=== PATIENT | male | born 1955 | race Caucasian/White ===

== ENCOUNTER → 2018-06-13 09:52 | Outpatient (CLI) | payer MEDICARE, MEDICAID, SELFPAY ==
--- NOTE | 2018-06-13 10:00 | NVE_ITS ---
Venous Exam Indications: 729.5 Pain in limb. IMPRESSIONS 1. There is no evidence of significant Reflux. 2. No evidence of deep or superficial vein thrombosis involving the right lower extremity Right lower extremity venous duplex evaluation. Doppler flow study including spectral analysis, color and batres scale imaging. Location: Vascular laboratory. Patient status: Outpatient. Tables: Venous flow and imaging: + +-------+ + Location Overall Flow properties + +-------+ + Right common femoral Patent Normal phasicity; spontaneous; normal augmentation; compressible + +-------+ + Right saphenofemoral junction Patent Compressible + +-------+ + Right profunda femoral Patent Compressible + +-------+ + Right femoral Patent Normal phasicity; spontaneous; normal augmentation; compressible + +-------+ + Right greater saphenous Patent Normal phasicity; spontaneous; normal augmentation; compressible + +-------+ + Right popliteal Patent Normal phasicity; spontaneous; normal augmentation; compressible + +-------+ + Right posterior tibial Patent Compressible + +-------+ + Right peroneal Patent Compressible + +-------+ + Right gastrocnemius Patent Compressible + +-------+ + Right soleal Patent Compressible + +-------+ + (Report amended ) Electronically signed by: Javed Tavares [id number]
== END ==
PROVIDERS: Family Provider Family Medicine; PCP Nurse Practitioner Family; Visit Provider Nurse Practitioner Family
DX: M79.604 Pain in right leg (principal)
CPT/HCPCS: 93971

== ENCOUNTER 2018-12-18 09:00 | Outpatient (RCR) | payer MEDICARE, MEDICAID, SELFPAY | END 2019-01-20 14:35 | disposition home or self-care (01) | LOC: PT 09:00 | PROVIDERS: Visit Provider Nurse Practitioner Family | DX: M54.2 Cervicalgia (principal) | CPT/HCPCS: 97010; 97012; 97014; 97110; 97163; G0283 ==

== ENCOUNTER 2022-10-27 13:39 | Emergency (ER) | payer MEDICARE, MEDICAID, SELFPAY ==
[2022-10-27] VITALS (19 sets, daily range): BP systolic 70–103; BP diastolic 46–60; PULSE 67–85; RESP 22–36; TEMP 36.8–39.6; O2SAT 97–100; BMI 29.8
--- NOTE | 2022-10-27 13:39 | ECG_ITS ---
APPROVED REPORT Exam: Resting ECG HR:83 bpm ECG Measurements Heart Rate 83 AXES [place] 125 P 9 QRSd 134 QRS 41 QT 452 T 47 QTc 492 Conclusion SINUS RHYTHM Incomplete RBBB ABNORMAL ECG UNCONFIRMED REPORT Electronically signed by : Jourdan Albarado MD 10/27/2022 21:16:35
--- NOTE | 2022-10-27 13:44 | HMH.EDAMS ---
Discharge Plan Disposition Patient Disposition: Xfer Short-Term Hosp Condition: Critical Prescriptions Prescriptions: No Action quetiapine 25 mg Tablet 25 mg feeding tube HS amiodarone 200 mg Tablet 200 mg feeding tube DAILY fluconazole 200 mg Tablet 400 mg feeding tube BID thiamine HCl (vitamin B1) 100 mg Tablet 100 mg feeding tube DAILY allopurinol 100 mg tablet 100 mg feeding tube DAILY omeprazole 40 mg capsule,delayed release(DR/EC) 40 mg feeding tube DAILY glimepiride 4 mg Tablet 4 mg feeding tube DAILY aspirin 81 mg Tablet,Chewable 81 mg feeding tube DAILY Multivitamin And Mineral Tablet 1 tab feeding tube DAILY metoprolol tartrate 25 mg Tablet 25 mg feeding tube BID topiramate 50 mg Tablet 50 mg feeding tube HS rifaximin 550 mg Tablet 550 mg feeding tube BID Brilinta 90 mg tablet 90 mg feeding tube BID Jardiance 25 mg Tablet 25 mg feeding tube DAILY cyanocobalamin (vitamin B-12) 500 mcg Tablet,Chewable 500 mcg PO DAILY Referrals Follow up/Referrals: Tam To [Primary Care Provider] - See instructions Clinical Impressions Clinical Impression: Septic shock Stand Alone Forms Stand Alone Forms: Transfer Record - ED Instructions Patient Instructions: DI for Altered Mental Status Discharge ED Provider: Prakash Lock Altered Mental Status HPI General Chief Complaint: Altered Mental Status Stated Complaint: ams Time Seen by Provider: 10/27/22 13:44 Mode of Arrival: EMS Source of Information: EMS Limitations: Altered Mental Status History of Present Illness HPI narrative: The patient presents via EMS from the shelter for altered mental status. At baseline the patient has dementia but is usually agitated and combative at night. According to EMS, the shelter staff stated that last night he did not act his usual. This morning he was unresponsive. MD complaint: altered mental status Related Data Home Medications Medication Instructions Recorded Confirmed allopurinol 100 mg tablet 100 mg feeding tube DAILY gout 10/27/22 10/27/22 amiodarone 200 mg tablet 200 mg feeding tube DAILY 10/27/22 10/27/22 Hypertension aspirin 81 mg chewable tablet 81 mg feeding tube DAILY 10/27/22 10/27/22 Hypertension cyanocobalamin (vitamin B-12) 500 500 mcg PO DAILY vitamins 10/27/22 10/27/22 mcg chewable tablet empagliflozin 25 mg tablet 25 mg feeding tube DAILY Diabetes 10/27/22 10/27/22 (Jardiance) fluconazole 200 mg tablet 400 mg feeding tube BID yeast 10/27/22 10/27/22 glimepiride 4 mg tablet 4 mg feeding tube DAILY Diabetes 10/27/22 10/27/22 metoprolol tartrate 25 mg tablet 25 mg feeding tube BID Hypertension 10/27/22 10/27/22 multivitamin,bt-lbnb-Ca-FA-min 1 tab feeding tube DAILY Supplement 10/27/22 10/27/22 omeprazole 40 mg capsule,delayed 40 mg feeding tube DAILY GERD 10/27/22 10/27/22 release quetiapine 25 mg tablet 25 mg feeding tube HS dementia 10/27/22 10/27/22 rifaximin 550 mg tablet 550 mg feeding tube BID ibs 10/27/22 10/27/22 thiamine HCl (vitamin B1) 100 mg 100 mg feeding tube DAILY vitamins 10/27/22 10/27/22 tablet ticagrelor 90 mg tablet (Brilinta) 90 mg feeding tube BID hx of [place] 10/27/22 10/27/22 topiramate 50 mg tablet 50 mg feeding tube HS 10/27/22 10/27/22 anticonvulsant Allergies Allergy/AdvReac Type Severity Reaction Status Date / Time Sulfa (Sulfonamide Allergy Unknown Verified 10/27/22 16:37 Antibiotics) [SULFA (SULFONAMIDE ANTIBIOTICS)] Influenza Virus Vaccines Allergy Verified 10/27/22 17:18 phenylephrine Allergy Verified 10/27/22 17:17 [id number] Reductase Allergy Verified 10/27/22 17:17 Inhibitor SINUS MEDS Allergy Unknown Uncoded 09/17/17 14:26 PFSH PFS Disclaimer: The information contained in this section may have been updated after the patient was seen, as this information can be updated by other users
--- NOTE | 2022-10-27 13:48 | XR_ITS ---
PROCEDURE INFORMATION: Exam: XR Chest Exam date and time: 10/27/2022 2:38 PM Age: 67 years old Clinical indication: Shortness of breath; Additional info: AMS TECHNIQUE: Imaging protocol: Radiologic exam of the chest. Views: 1 view. COMPARISON: No relevant prior studies available. FINDINGS: Tubes, catheters and devices: There are several EKG leads overlying the chest. Lungs: There is question of a retrocardiac infiltrate. Pleural spaces: Unremarkable. No pleural effusion. No pneumothorax. Heart/Mediastinum: Unremarkable. No cardiomegaly. Bones/joints: Median sternotomy wires are present. There is moderate osteopenia. Other findings: Evaluation is limited due to patient rotation. IMPRESSION: There is question of a retrocardiac infiltrate. Followup imaging is recommended.
--- NOTE | 2022-10-27 13:48 | CT_ITS ---
PROCEDURE INFORMATION: Exam: CT Head Without Contrast Exam date and time: 10/27/2022 2:20 PM Age: 67 years old Clinical indication: Altered mental status/memory loss. TECHNIQUE: Imaging protocol: Computed tomography of the head without contrast. Radiation optimization: All CT scans at this facility use at least one of these dose optimization techniques: automated exposure control; mA and/or kV adjustment per patient size (includes targeted exams where dose is matched to clinical indication); or iterative reconstruction. Other protocol: This patient has received 0 known CTs and 0 known cardiac nuclear medicine studies in the 12 months prior to the current study. COMPARISON: No relevant prior studies available. FINDINGS: Brain: There is low attenuation abnormality in the periventricular white matter consistent with chronic microvascular ischemic changes. There are chronic brainstem ischemic changes. There is moderate cerebral and cerebellar atrophy. There is moderate intracranial vascular calcification. Cerebral ventricles: No ventriculomegaly. Paranasal sinuses: Visualized sinuses are unremarkable. No fluid levels. Mastoid air cells: Visualized mastoid air cells are well aerated. Bones/joints: Unremarkable. No acute fracture. Soft tissues: Unremarkable. IMPRESSION: 1. There is low attenuation abnormality in the periventricular white matter consistent with chronic microvascular ischemic changes. If an acute infarct is a clinical concern, follow-up MRI with diffusion imaging is recommended. 2. There are chronic brainstem ischemic changes. 3. There is moderate cerebral and cerebellar atrophy.
[2022-10-27 13:58] LABS: VBG Base Excess 0.7 mmol/L (-2.4-2.3); VBG Oxygen Saturation 42.8 % (50-70); VBG PCO2 38.4 mmol/L (35-51); VBG PH 7.43 mmol/L (7.31-7.41); VBG PO2 26.5 mmol/L (28-40); VBG Total CO2 26.2 mmol/L (23-27)
[2022-10-27 14:02] LABS: Lactic Acid 3.1 mmol/L (0.7-2.1)
--- NOTE | 2022-10-27 14:07 | PC.NURSE ---
pt switched to NC at 4L, ER aware pt sat was 100% on 100% NRB
[2022-10-27 14:09] LABS: Basophils # 0.1 K/mm3 (0-0.2); Basophils % 0.9 % (0.1-2.0); Eosinophils # 0.1 K/mm3 (0.0-0.4); Eosinophils % 1.1 % (0.1-12.0); Hematocrit 39.3 % (42.0-52.0); Lymphocytes # 2.2 K/mm3 (0.7-4.5); Mean Corpuscular HGB Conc 30.5 g/dL (31.8-35.4); Mean Corpuscular Hemoglobin 25.9 pg (27.0-31.2); Mean Corpuscular Volume 84.8 fl (80-94); Monocytes # 0.4 K/mm3 (0.1-1.0); Monocytes % 2.7 % (1.7-9.3); Neutrophils # 10.1 K/mm3 (1.8-7.8); Neutrophils % 78.4 % (37.0-80.0); Platelet Count 466 K/mm3 (142-424); Red Blood Count 4.63 M/mm3 (4.60-6.20); Red Cell Distribution Width 18.4 % (11.5-17.5); White Blood Count 12.9 K/mm3 (4.8-10.8)
[2022-10-27 14:10] LABS: Appearance,Urine CLOUDY (Clear); Bilirubin,Urine Negative (Negative); Blood, Urine 3+ (Negative); Color,Urine YELLOW (Yellow); Glucose,Urine (UA) 2+ (Negative); Ketones,Urine Negative (Negative); Leukocyte Esterase,Urine 2+ (Negative); Microscopic, Urine URINE MICROSCOPIC (MICROSCOPIC); Nitrate,Urine Negative (Negative); Protein,Urine TRACE (Negative); Specific Gravity, Urine 1.025 (1.005-1.030); Urobilinogen,Urine 0.2 EU/dl (0.2)
[2022-10-27 14:13] LABS: Activated Partial Thrombo Time 23.9 seconds (22.8-30.6); INR 1.38 (0.9-1.1); Prothrombin Time 14.6 seconds (10.1-12.5)
--- NOTE | 2022-10-27 14:13 | PC.NURSE ---
pt to CT via stretcher
[2022-10-27 14:25] LABS: Bacteria,Urine 3+ /lpf; Calcium Oxalate Crystals,Urine Trace /lpf; WBC,Urine 50-100 #/hpf (0-3)
--- NOTE | 2022-10-27 14:34 | PC.NURSE ---
pt return from CT lab at
--- NOTE | 2022-10-27 14:39 | P.CONPHA_ITS ---
Pharmacy Consult Date: 10/27/22 Time: 14:39 Referring provider: DR. ARRINGTON Reason for Consult:: VANCOMYCIN DOSING Allergies Allergy/AdvReac Type Severity Reaction Status Date / Time Sulfa (Sulfonamide Allergy Unknown Unverified 09/17/17 14:26 Antibiotics) [SULFA (SULFONAMIDE ANTIBIOTICS)] SINUS MEDS Allergy Unknown Uncoded 09/17/17 14:26 New Prescriptions to Start Prescriptions: Height: 1.83 m Weight: 99.79 kg Laboratory Results:: Laboratory Results - last 24 hr 10/27/22 13:48: WBC 12.9 H, RBC 4.63, Hgb 12.0 L, Hct 39.3 L, MCV 84.8, MCH 25.9 L, MCHC 30.5 L, RDW 18.4 H, Plt Count 466 H, MPV 9.0, Neut % (Auto) 78.4, Lymph % (Auto) 17.0, [place] % (Auto) 2.7, Eos % (Auto) 1.1, Baso % (Auto) 0.9, Neut # (Auto) 10.1 H, Lymph # (Auto) 2.2, [place] # (Auto) 0.4, Eos # (Auto) 0.1, Baso # (Auto) 0.1 10/27/22 13:48: PT 14.6 H, INR 1.38 H, APTT 23.9 10/27/22 13:48: Lactate 3.1 H 10/27/22 13:54: VBG pH 7.43 H, VBG pCO2 38.4, VBG pO2 26.5 L, VBG HCO3 25.0, VBG Total CO2 26.2, VBG O2 Saturation 42.8 L, VBG Base Excess 0.7 10/27/22 14:05: Urine Color Yellow, Urine Appearance Cloudy, Urine pH 5.0, Ur Specific [place] 1.025, Urine Protein Trace, Urine Glucose (UA) 2+, Urine Ketones Negative, Urine Blood 3+, Urine Nitrate Negative, Urine Bilirubin Negative, Urine Urobilinogen 0.2, Ur Leukocyte Esterase 2+ A, Urine RBC 3-5, Urine WBC 50-100, Ur Squamous Epith Cells 3-5, Calcium Oxalate Crystal Trace, Urine Bacteria 3+
--- NOTE | 2022-10-27 15:06 | PC.NURSE ---
pt sister at
--- NOTE | 2022-10-27 15:12 | PC.NURSE ---
O2 decreased to 3L per NC at this time will continue to monitor
--- NOTE | 2022-10-27 15:19 | PC.NURSE ---
oral care performed at this time, large amount of black and batres material removed from roof of pt mouth with swab stick. Pt tolerated well.
[2022-10-27 15:28] LABS: Chloride 121 mmol/L (98-107)
[2022-10-27 15:31] LABS: Alanine Aminotransferase 56 U/L (12-78); Albumin Level 3.1 g/dl (3.5-5.0); Albumin/Globulin Ratio 0.8 (1.1-1.8); Alkaline Phosphatase 164 U/L (38-126); Aspartate Amino Transferase 143 U/L (17-59); Bilirubin,Total 0.5 mg/dl (0.2-1.3); Calcium 9.1 mg/dl (8.4-10.2); Carbon Dioxide 21 mmol/L (22.0-30.0); Creatinine Clearance Estimated 29 mL/min (50-200); Estimated Glomerular Filt Rate 18 ml/min (>60); GFR (African American) 22 ML/MIN (>60); Globulin 3.9 g/dL (1.3-3.2); Glucose 145 mg/dl (74-100)
[2022-10-27 15:43] LABS: Troponin I 0.03 ng/ml (0.00-0.034)
[2022-10-27 15:56] LABS: Blood Urea Nitrogen 146 mg/dl (9-20); Sodium 158 mmol/L (136-145)
[2022-10-27 16:09] LABS: Coronavirus 19, PCR Not Detected (NotDetected); Influenza A, PCR Not Detected (NotDetected); Influenza B, PCR Not Detected (NotDetected)
--- NOTE | 2022-10-27 16:24 | PC.NURSE ---
HAS BEEN CALLED FOR TRANSFER. WILL CALL BACK WHEN THEY GET A HOLD OF HOSPITALIST.
--- NOTE | 2022-10-27 17:24 | PC.NURSE ---
report called to shara licona at [facility] at this time [facility] notified of need for pt transfer.
--- NOTE | 2022-10-27 17:44 | PC.NURSE ---
ER gave verbal order for Normal saline per IV at 125ml/hr for maintenance fluids during transport
--- NOTE | 2022-10-27 17:49 | PC.NURSE ---
Addendum entered by Manasa Prasad, EMT 10/27/22 17:49: called at 1721 Original Note: [facility] called for transport to [facility]
[2022-10-27 17:53] LABS: Reflex Lactic Add Lactic Reflex
--- NOTE | 2022-10-27 18:35 | PC.NURSE ---
report given to [facility] at this time
[2022-10-27 19:31] LABS: Lactic Acid Follow Up (RFLX 1) 3.1 mmol/L (0.7-2.1)
[2022-10-27 21:14] LABS: Reflex Lactic (2 hrs) Add Lactic Reflex
== END 2022-10-27 18:43 | disposition short-term general hospital (02) ==
PROVIDERS: Emergency Provider Emergency Medicine; PCP Family Medicine; Referring Provider Family Medicine
DX: A41.9 Sepsis, unspecified organism (principal); R65.21 Severe sepsis with septic shock; Z20.822 Contact with and (suspected) exposure to COVID-19
CPT/HCPCS: 36415; 70450; 71045; 80053; 81001; 82803; 83605; 84484; 85025; 85610; 85730; 87040; 87086; 87088; 87186; 93005; 96361; 96365; 96366; 99291; C9803; G0390; J3370; U0003; U0005